=== PATIENT | female | born 1970 | race Caucasian/White ===

== ENCOUNTER 2017-01-05 12:02 | Emergency (ER) | payer OTHER ==
--- NOTE | 2017-01-05 14:19 | ED CLINICAL REPORT ---
Clinical Report - Physicians/Mid Levels [facility] [address] [place] [address] 01/05/2017 12:06 Patient: MACIEJ FERNANDEZ Arrived- By private vehicle. Historian- patient. HISTORY OF PRESENT ILLNESS Is no longer unconscious. She has recovered (staying the same). Chief Complaint: NEAR-SYNCOPE. This occurred The past few days. It was gradual in onset and has been constant. Patient was last known well (Days ago). Event was not witnessed. The patient had preceding symptoms of light-headedness. The patient felt faint. The episode lasted hours. No injuries noted. Currently she does not feel normal. (reports feeling lightheaded. Patient reports being recently started on Topamax.). Similar symptoms previously: None. Recent medical care: Not recently seen/assessed. REVIEW OF SYSTEMS All systems otherwise negative, except as recorded above. PAST HISTORY See nurses notes. Medications: diabetic oral med. PriLOSEC Oral, 2x a day. TraZODone HCl Oral, at bedtime. Lantus Subcutaneous 24 units, at bedtime. HumaLOG Subcutaneous 18 units, 4 times daily. Depakote Sprinkles Oral (Capsule Sprinkle 125 mg) 2 capsules, twice daily. headache medication. Allergies: Percocet-rash. Vicodin. SOCIAL HISTORY Never smoker. No alcohol use or drug use. No recent travel. Is a local resident. FAMILY HISTORY (No family history of unexpected early .). ADDITIONAL NOTES The nursing notes have been reviewed. PHYSICAL EXAM Vital Signs: 01/05/2017 12:12 BP: 109/47. HR: 70. RR: 18. O2 saturation: 98%. Temp: 98.2 F. Pain level now: 10/10. Blood pressure normal. Oxygen saturation normal. Appearance: Alert. No acute distress. Eyes: Pupils equal, round and reactive to light. No nystagmus. Extraocular movements normal. ENT: Normal ENT inspection. TM's normal. Moist mucous membranes. Pharynx normal. Neck: Normal inspection. Neck supple. CVS: Normal heart rate and rhythm. Heart sounds normal. Pulses normal. Respiratory: No respiratory distress. Breath sounds normal. Abdomen: Soft and nontender. No organomegaly. Skin: Skin warm and dry. Normal skin color. No rash. Normal skin turgor. Extremities: Extremities exhibit normal ROM. No lower extremity edema. Neuro: Alert. Oriented X 3. Mood/affect normal. Speech normal. Cranial nerves normal (as tested). No cerebellar findings. No motor deficit. No sensory deficit. Reflexes normal. (Normal gait). LABS, X-RAYS, AND EKG EKG: Normal sinus rhythm. Rate: 72. Normal P waves. Normal EV. Normal QRS complex. Normal axis. Normal ST and T waves, QT and QTc. The study has been interpreted contemporaneously by me. The study has been independently viewed by me. The EKG appears to be a good tracing. Laboratory Tests: UA-Culture if indicated: (BARBRA: 01/05/2017 12:23) ( [facility] [place] 01/05/[place] 12:35) Final results Test Result Flag Units (Reference) URINE COLOR YELLOW URINE APPEARANCE CLEAR URINE GLUCOSE TRACE (NEGATIVE) URINE BILIRUBIN NEGATIVE (NEGATIVE) URINE KETONE NEGATIVE (NEGATIVE) URINE SPECIFIC GRAVITY >= 1.030 (1.010-1.030) URINE PH 5.0 (5.0-8.0) URINE PROTEIN NEGATIVE (NEGATIVE) URINE UROBILINOGEN 0.2 EU/dL (0.2-1.0) URINE NITRITE NEGATIVE (NEGATIVE) URINE BLOOD NEGATIVE (NEGATIVE) URINE LEUK ESTERASE NEGATIVE (NEGATIVE) URINE RBC NONE SEEN rbc/hpf (0-1) URINE WBC 1-3 wbc/hpf (0-1) URINE EPITHELIAL CELLS 1-3 EPI/hpf (0-5) URINE BACTERIA TRACE (<1+) (NONE SEEN) URINE COMMENT CULT NOT INDICATED 1+ MUCOUSURINE CULTURES ARE SET-UP BASED ON THE FOLLOWING CRITERIA:POSITIVE NITRITEPOSITIVE LEUKOCYTE ESTERASEGREATER THAN 10 WHITE BLOOD CELLSMODERATE (2+) OR GREATER BACTERIA Urine: (BARBRA: 01/05/2017 12:23) ( [facility] [place] 01/05/2017 12:28) Final results Test Result Flag Units (Reference) URINE NEGATIVE CBC w Diff: (BARBRA: 01/05/2017 12:45) ( Msg[facility]cvd 01/05/2017 12:52) Final results Test Result Flag Units (Reference) WHITE BLOOD COUNT 6.5 K/uL (4.5-11.5) RED BLOOD COUNT 4.92 M/uL (4.00-5.20) HEMOGLOBIN 14.4 gm/dL (12.0-16.0) HEMATOCRIT 41.5 % (36.0-46.0) MEAN CELL VOLUME 84 fL (80-100) MEAN CORPUSCULAR HGB 29 pg (26-34) MEAN CORPUSCULAR HGB CONC 35 g/dL (31-37) RED CELL DISTRIBUTION WIDTH 12.3 % (11.6-14.8) PLATELET COUNT 232 K/uL (150-400) NEUTROPHIL % 52.6 % (50-75) LYMPH % 40.3 H % (25-40) MONO % 4.9 % (3-14) EOSINOPHIL % 1.8 % (0-4) BASOPHIL % 0.4 % (0-2) Urine Drug Screen: (BARBRA: 01/05/2017 12:41) ( MsgRcvd 01/05/2017 13:09) Final results Test Result Flag Units (Reference) AMPHETAMINE/METHAMPHETAMINE NEGATIVE (NEGATIVE) BARBITURATE NEGATIVE (NEGATIVE) BENZODIAZEPINE NEGATIVE (NEGATIVE) CANNABINOID NEGATIVE (NEGATIVE) COCAINE NEGATIVE (NEGATIVE) ECSTASY NEGATIVE (NEGATIVE) METHADONE NEGATIVE (NEGATIVE) OPIATE NEGATIVE (NEGATIVE) The urine drug screen is a qualitative screening test fordrug overdose and abuse. All screen results should beconsidered as presumptive.Drugs screened for are as follows:BenzodiazepinesCocaineAmphetamines/MetamphetaminesTHC (Tetrahydrocannabinol)OpiatesBarbituratesEcstasyMethadonePositive results are unconfirmed. For confirmation, notifythe lab for the specimen to be sent to the reference lab.All confirmations must be performed by a differentmethodology.The ingestion of natural herbal and plant productscontaining Ephedra/Ephedra metabolites can produce in urineone or more substances capable of cross reacting withamphetamine/methamphetamine immunoassays. These testsprovide a preliminary result only. A more specificalternative chemical method must be used to obtain aconfirmed analytical result. CMP: (BARBRA: 01/05/2017 12:45) ( MsgRcvd 01/05/2017 13:11) Final results Test Result Flag Units (Reference) GLUCOSE 310 H mg/dL (70-110) BUN 10 mg/dL (7-18) CREATININE 0.8 mg/dL (0.6-1.3) Estimated GFR >60 mL/min Estimated GFR- >60 mL/min Note: Persistent reduction over 3 months in eGFR<60 mL/min/1.73 m2 defines CKD. Patients with eGFR values>=60 mL/min/1.73 m2 may also have CKD if evidence ofpersistent proteinuria. Additional information may be foundat www.kidney.org. SODIUM 140 mmol/L (136-145) POTASSIUM 3.6 mmol/L (3.5-5.1) CHLORIDE 106 mmol/L (98-107) CARBON DIOXIDE 22 mmol/L (21-32) CALCIUM 8.7 mg/dL (8.5-10.1) TOTAL PROTEIN 7.9 g/dL (6.4-8.2) ALBUMIN 3.4 g/dL (3.3-5.0) BILIRUBIN, TOTAL 0.8 mg/dL (0.0-1.0) ALKALINE PHOSPHATASE 131 H U/L (46-116) AST (SGOT) 24 U/L (15-37) ALT (SGPT) 41 U/L (12-78) . PROGRESS AND PROCEDURES Course of Care: the patient is a pleasant 46-year-old female presenting for evaluation of near-syncope. The patient reports feeling lightheaded in nature. Patient recently started Topamax. This is likely the etiology for the patient's lightheadedness at this time. Patient will be evaluated for other causes for the lightheadedness. Patient will be evaluated with the [place] syncope rule. EKG and blood work has been ordered in regards to this. We'll additionally order urinary studies for evaluation of urinary tract infection which could be causing the patient's symptoms at this time. We'll also evaluate patient's electrolytes as she she is a diabetic and could have significant abnormalities there causing her symptoms. Workup shows patient to be hyperglycemic. Patient without evidence of diabetic ketoacidosis. EKG is unremarkable. The [place] syncope rule workup is noted to be unremarkable. Patient reports no other concerns at this time. Had discussion with patient in regards to her presentation here in the emergency department. Because of the temporal relation with her starting Topamax and her lightheadedness, recommended patient slowly reduce the Topamax and then eventually taper off. Patient was agreeable to the treatment and plan. Encourage patient tospeak with her doctor in regards to this medication and if there are any other alternatives for this medication. Prior to patient's departure from the emergency department she was noted be resting in bed in no acute distress. Vital signs are unremarkable. Do not fill patient is to be admitted the hospital require further emergency department workup/evaluation. The patient is a good outpatient candidate. I discussed the patient workup, diagnosis, home care, follow-up, and return precautions. All questions answered. The patient expressed understanding of these instructions and was agreeable to them. Disposition: Discharged. Condition: good. CLINICAL IMPRESSION Near syncope (acute). 01/05/2017 14:13 BP: 108/59. HR: 67. RR: 16. O2 saturation: 100%. Blood pressure normal. Oxygen saturation normal. Moderate hyperglycemia (acute). INSTRUCTIONS (Contact your doctor about stopping Topamax). Warnings: GENERAL WARNINGS: Return or contact your physician immediately if your condition worsens or changes unexpectedly, if not improving as expected, or if other problems arise. SPECIFICALLY, return if you develop chest pain, fluttering sensation in your chest, lightheadedness, fainting, numbness or extreme fatigue. OTC Medications: Acetaminophen (available over the counter): take according to label instructions. Motrin (available over the counter): take according to label instructions. Follow-up: Return to the emergency department as needed. Follow up with your doctor in three days. Reason for referral: recheck today's concerns. Summary of care provided to patient via paper. Screening today revealed the patient's blood pressure to be in the normal range. The patient should follow up with a primary care provider for blood pressure management. Understanding of the discharge instructions verbalized by patient. (Electronically signed by Jignesh Rosales Dr. 01/09/2017 10:04)
--- NOTE | 2017-01-05 14:20 | ED ORDER SUMMARY ---
..... Patient: MACIEJ FERNANDEZ OrderSheet [facility] VisitID: [id number] [address] [place] [place] [address] 46y, F Registration Date/Time: 01/05/2017 ORDER SHEET Weight: 103.5 kg (measured) Allergies: Percocet-rash, Vicodin GENERAL ORDERS: UA-Culture if indicated Urgent (12:01/05/2017 JBoartejal R.N. per protocol) (12:27 EBonham) Urine Urgent (12:01/05/2017 JBoardley R.N. 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) (near syncope) (12:01/05/2017 Tiffanie Mckeon) (12:27 EBonnieves) EKG - ER Stat (12:01/05/2017 Tiffanie Mckeon) [facility] Pulse oximeter (12:01/05/2017 Tiffanie Mckeon) [facility] CBC w Diff Urgent (12:01/05/2017 Tiffanie Mckeon) (Ack 12:33 MDouse ER Tech1) (12[facility] CMP Urgent (12:01/05/2017 Tiffanie Mckeon) (Ack 12:33 MDouse ER Tech1) (12[facility] POC Glucose (12:01/05/2017 Tiffanie Mckeon) (12:26 Edie R.N.) Urine Drug Screen Urgent (12:34 01/05/2017 Renny per protocol) (12:34 NHouse ER Tech1) MEDICATION ORDERS: IV FLUIDS: IV NS : initial bolus 1000 mL (1000 mL/hr), then none - for X1 (NOW) (12:01/05/2017 Tiffanie Mckeon) (12:45 JBoartejal R.N.) ORDER SHEET NOTES: [Electronically signed by Sofiya Fuchs (14:31 01/05/2017)] [Electronically signed by Jignesh Rosales Dr. (10:04 01/09/2017)] [Electronically locked/signed by Sofiya Fuchs (14:31 01/05/2017)[place]
--- NOTE | 2017-01-05 14:20 | ED NURSING NOTES ---
Clinical Report - Nurses [facility] [address] [place] [address] 01/05/2017 12:06 Patient: MACIEJ FERNANDEZ [facility]#: [id number] TRIAGE Triage time 12:12. Acuity: LEVEL 3. Chief Complaint: DIZZINESS. 12:12 01/05/17. 12:12 01/05/17. Alert. No acute distress. SEPSIS SCREEN: Sepsis Screen. Negative (no infection suspected/documented). LYDIA COMA SCORE: [place] Coma Scale: 15- eyes open spontaneously (4); best verbal response- oriented x 4 (5); best motor response- obeys commands (6). --12:19 Stalin Pineda R.N. 12:12 01/05/17. BP: 109/47. HR: 70. RR: 18. O2 saturation: 98% on room air. Temp: 98.2 F (oral). Pain level now: 08/31. --12:19 Stalin Pineda R.N. Height/Length: 62 inches Per Patient. --12:13 Stalin Pineda R.N.. Weight: 103.5 kg measured. BMI: 41.8. --12:22 Stalin Pineda R.N. Medications Depakote Sprinkles Oral (Capsule Sprinkle 125 mg) 2 capsules, twice daily. headache medication. --12:17 Stalin Pineda R.N. HumaLOG Subcutaneous 18 units, 4 times daily. --12:17 Stalin Pineda R.N. Lantus Subcutaneous 24 units, at bedtime. --12:17 Stalin Pineda R.N. PriLOSEC Oral, 2x a day. TraZODone HCl Oral, at bedtime. --12:18 Stalin Pineda R.N. diabetic oral med. --12:18 Stalin Pineda R.N. Medication/allergy information source: the patient. --12:19 Stalin Pineda R.N. Allergies Percocet-rash. Vicodin. --12:18 Stalin Pineda R.N. History Arrived by private vehicle, and (landlord drove pt in). Historian: patient. Unaccompanied. Primary physician (KARLOS CHAPMAN). 12:01/05/17. This started yesterday. 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 PAST MEDICAL HX: Last normal menstrual period- March 04, 2016-Irregular. Immunizations not up to date. SOCIAL HX: Never smoker. No alcohol use or drug use. No infectious disease exposure. ABUSE ASSESSMENT: No report of abuse. FALL RISK ASSESSMENT: Fall risk assessment completed. No fall risk identified. NUTRITIONAL RISK ASSESSMENT: The nutritional risk assessment revealed no deficiencies. FUNCTIONAL ASSESSMENT: Functional assessment: no impairments noted. LEARNING NEEDS ASSESSMENT: The learning needs assessment revealed no barriers. SKIN INTEGRITY ASSESSMENT: Skin integrity risk assessment completed. No skin integrity risk identified. --12:19 Stalin Pineda R.N. PROBLEMS: Tinea Cruris. Skin Rash. Acute Otalgia. Acute Pain. Sinusitis. Sinus Problems. Prior Nosebleeds. Ear Infection. Sick Contact. Head Injury. Headache. Abdominal Pain. Sleep disorder. Seizure. Diabetes Mellitus. --12:19 Stalin Pineda R.N. ADDITIONAL SURGERIES: Cholecystectomy. . Oophorectomy. --12:19 Stalin Pineda R.N. Assessment 12:01/05/17. --12:19 Stalin Pineda R.N. Interventions 12:01/05/17. 12:01/05/17. ID and allergy band on patient. To treatment room. --12:19 Stalin Pineda R.N. PHYSICAL ASSESSMENT 12:01/05/17. Ambulatory to room. GENERAL / NEURO / PSYCH: Alert. Oriented X 4. CVS: Capillary refill less than 2 seconds. SKIN: Skin is warm and dry. --12:19 Stalin Pineda R.N. NURSING PROGRESS NOTES 12:01/05/17. The plan of care for this patient has been created. Patient gowned. Head of bed elevated. Reassurance given. Two patient identifiers checked. Call light placed in reach. Side rails up x 2. Bed placed in lowest position. Brakes of bed on. Brakes of chair on. --12:19 Stalin Pineda R.N. 12:19 01/05/17. Patient ready for evaluation- chart flagged and notification provided. --12:19 Stalin Pineda R.N. 12:20 01/05/17. Patient ID band checked for patient name and birthdate: patient confirmed. Clean catch urine collected with return of yellow-colored urine; sample sent to lab for urinalysis and culture. Specimen labeled in the presence of the patient. --12:20 Stalin Pineda R.N. 12:24 01/05/17. Finger stick glucose: 302 mg/dL; ordered; performed by nurse. --12:24 Stalin Pineda R.N. EKG time: (1239). EKG was ordered, performed by a tech and shown to the ED physician. --12:41 Qian French ER Tech1 12:39 01/05/2017 Site #1 started via IV in the left forearm with an 20g angiocath; two attempts. Blood drawn: rainbow set. Labeled in the presence of the patient and sent to the lab. Saline lock flushed with 10 mL saline. --12:44 Stalin Pineda R.N. 12:45 01/05/2017 Started bag #1 1000 mL IV Fluids IV NS (Saline); at 1000 mL/hr over 1 hour(s) via site #1. Allergies verified and confirmed 5 rights. IV patency established. IV site checked: no pain, redness, or swelling. IV flushed thoroughly pre- and post-medication administration. Completed per protocol. --12:45 Stalin Pineda R.N. 14:13 01/05/17. BP: 108/59. HR: 67. RR: 16. O2 saturation: 100%. Pain level now 0/10. --14:15 Sofiya Fuchs Monitoring of patient in place. Reassurance given. Reassessment after intervention. She reports no complaints and she is calm. Overall patient status is improved- she states feels better. ( Pt smiling and talked on phone with friends). Call light placed in reach. Side rails up x 2. Bed placed in lowest position. Brakes of bed on. Patient informed about reason for wait and about plan of care. Patient waiting for lab results. --14:15 Sofiya Fuchs 14:29 01/05/2017 Site #1 removed upon discharge. Pressure dressing applied. --14:29 Sofiya Fuchs 14:29 01/05/2017 IV Fluids IV NS Discontinued: bag #1 STOPPED upon discharge. Total amount infused: 600 mL. --14:29 Sofyia Fuchs 14:29 01/05/17. BP: 108/48. HR: 68. RR: 16. O2 saturation: 100%. Pain level now 0/10. --14:30 Sofiya Fuchs. DISPOSITION / DISCHARGE Departure time: 1425. Condition at departure: improved and stable. No learning barriers present. Discharge instructions provided and reviewed with the patient. Patient verbalized understanding. Written instructions provided in Kyrgyz. The patient was discharged by the physician. She was discharged home and accompanied by director of graduate medical education. She left the Emergency Department ambulatory and via private vehicle. Filling Carrier driving. --14:31 Sofiya Fuchs. Locked/Released at 01/05/2017 14:31 by Sofiya Fuchs,
--- NOTE | 2017-01-05 14:20 | ED ORDER SUMMARY ---
..... Patient: MACIEJ FERNANDEZ OrderSheet [facility] VisitID: [id number] [address] [place] [address] 46y, F Registration Date/Time: 01/05/2017 ORDER SHEET Weight: 103.5 kg (measured) Allergies: Percocet-rash, Vicodin GENERAL ORDERS: UA-Culture if indicated Urgent (12:01/05/2017 JBoartejal R.N. per protocol) (12:27 EBonham) Urine Urgent (12:01/05/2017 JBoardley R.N. 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 Pulse oximeter (12:01/05/2017 Tiffanie Mckeon) [facility] CBC w Diff Urgent (12:01/05/2017 Tiffanie Mckeon) (Ack 12:33 MIouse ER Tech1) (12:[facility] CMP Urgent (12:01/05/2017 Tiffanie Mckeon) (Ack 12:33 MIouse ER Tech1) (12:41 [facility] POC Glucose (12:01/05/2017 Tiffanie Mckeon) (12:26 Edie R.N.) Urine Drug Screen Urgent (12:34 01/05/2017 Renny per protocol) (12:34 NHouse ER Tech1) MEDICATION ORDERS: IV FLUIDS: IV NS : initial bolus 1000 mL (1000 mL/hr), then none - for X1 (NOW) (12:01/05/2017 Tiffanie Mckeon) (12:45 JBoartejal R.N.) ORDER SHEET NOTES: [Electronically signed by Sofiya Fuchs (14:31 01/05/2017)] [Electronically signed by Jignesh Rosales Dr. (10:04 01/09/2017)] [Electronically locked/signed by Sofiya Fuchs (14:31 01/05/2017)[place]
--- NOTE | 2017-01-05 14:20 | ED NURSING NOTES ---
Clinical Report - Nurses [facility] [address] [place] [address] 01/05/2017 12:06 Patient: MACIEJ FERNANDEZ [facility]#: [id number] TRIAGE Triage time 12:12. Acuity: LEVEL 3. Chief Complaint: DIZZINESS. 12:12 01/05/17. 12:12 01/05/17. Alert. No acute distress. SEPSIS SCREEN: Sepsis Screen. Negative (no infection suspected/documented). LYDIA COMA SCORE: Antelope Coma Scale: 15- eyes open spontaneously (4); best verbal response- oriented x 4 (5); best motor response- obeys commands (6). --12:19 Stalin Pineda R.N. 12:12 01/05/17. BP: 109/47. HR: 70. RR: 18. O2 saturation: 98% on room air. Temp: 98.2 F (oral). Pain level now: 08/31. --12:19 Stalin Pineda R.N. Height/Length: 62 inches Per Patient. --12:13 Stalin Pineda R.N.. Weight: 103.5 kg measured. BMI: 41.8. --12:22 Stalin Pineda R.N. Medications Depakote Sprinkles Oral (Capsule Sprinkle 125 mg) 2 capsules, twice daily. headache medication. --12:17 Stalin Pineda R.N. HumaLOG Subcutaneous 18 units, 4 times daily. --12:17 Stalin Pineda R.N. Lantus Subcutaneous 24 units, at bedtime. --12:17 Stalin Pineda R.N. PriLOSEC Oral, 2x a day. TraZODone HCl Oral, at bedtime. --12:18 Stalin Pineda R.N. diabetic oral med. --12:18 Stalin Pineda R.N. Medication/allergy information source: the patient. --12:19 Stalin Pineda R.N. Allergies Percocet-rash. Vicodin. --12:18 Stalin Pineda R.N. History Arrived by private vehicle, and (landlord drove pt in). Historian: patient. Unaccompanied. Primary physician (KARLOS CHAPMAN). 12:01/05/17. This started yesterday. 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 PAST MEDICAL HX: Last normal menstrual period- March 04, 2016-Irregular. Immunizations not up to date. SOCIAL HX: Never smoker. No alcohol use or drug use. No infectious disease exposure. ABUSE ASSESSMENT: No report of abuse. FALL RISK ASSESSMENT: Fall risk assessment completed. No fall risk identified. NUTRITIONAL RISK ASSESSMENT: The nutritional risk assessment revealed no deficiencies. FUNCTIONAL ASSESSMENT: Functional assessment: no impairments noted. LEARNING NEEDS ASSESSMENT: The learning needs assessment revealed no barriers. SKIN INTEGRITY ASSESSMENT: Skin integrity risk assessment completed. No skin integrity risk identified. --12:19 Stalin Pineda R.N. PROBLEMS: Tinea Cruris. Skin Rash. Acute Otalgia. Acute Pain. Sinusitis. Sinus Problems. Prior Nosebleeds. Ear Infection. Sick Contact. Head Injury. Headache. Abdominal Pain. Sleep disorder. Seizure. Diabetes Mellitus. --12:19 Stalin Pineda R.N. ADDITIONAL SURGERIES: Cholecystectomy. . Oophorectomy. --12:19 Stalin Pineda R.N. Assessment 12:01/05/17. --12:19 Stalin Pineda R.N. Interventions 12:01/05/17. 12:01/05/17. ID and allergy band on patient. To treatment room. --12:19 Stalin Pineda R.N. PHYSICAL ASSESSMENT 12:01/05/17. Ambulatory to room. GENERAL / NEURO / PSYCH: Alert. Oriented X 4. CVS: Capillary refill less than 2 seconds. SKIN: Skin is warm and dry. --12:19 Stalin Pineda R.N. NURSING PROGRESS NOTES 12:01/05/17. The plan of care for this patient has been created. Patient gowned. Head of bed elevated. Reassurance given. Two patient identifiers checked. Call light placed in reach. Side rails up x 2. Bed placed in lowest position. Brakes of bed on. Brakes of chair on. --12:19 Stalin Pineda R.N. 12:19 01/05/17. Patient ready for evaluation- chart flagged and notification provided. --12:19 Stalin Pineda R.N. 12:20 01/05/17. Patient ID band checked for patient name and birthdate: patient confirmed. Clean catch urine collected with return of yellow-colored urine; sample sent to lab for urinalysis and culture. Specimen labeled in the presence of the patient. --12:20 Stalin Pineda R.N. 12:24 01/05/17. Finger stick glucose: 302 mg/dL; ordered; performed by nurse. --12:24 Stalin Pineda R.N. EKG time: (1239). EKG was ordered, performed by a tech and shown to the ED physician. --12:41 Qian French ER Tech1 12:39 01/05/2017 Site #1 started via IV in the left forearm with an 20g angiocath; two attempts. Blood drawn: rainbow set. Labeled in the presence of the patient and sent to the lab. Saline lock flushed with 10 mL saline. --12:44 Stalin Pineda R.N. 12:45 01/05/2017 Started bag #1 1000 mL IV Fluids IV NS (Saline); at 1000 mL/hr over 1 hour(s) via site #1. Allergies verified and confirmed 5 rights. IV patency established. IV site checked: no pain, redness, or swelling. IV flushed thoroughly pre- and post-medication administration. Completed per protocol. --12:45 Stalin Pineda R.N. 14:13 01/05/17. BP: 108/59. HR: 67. RR: 16. O2 saturation: 100%. Pain level now 0/10. --14:15 Sofiya Fuchs Monitoring of patient in place. Reassurance given. Reassessment after intervention. She reports no complaints and she is calm. Overall patient status is improved- she states feels better. ( Pt smiling and talked on phone with friends). Call light placed in reach. Side rails up x 2. Bed placed in lowest position. Brakes of bed on. Patient informed about reason for wait and about plan of care. Patient waiting for lab results. --14:15 Sofiya Fuchs 14:29 01/05/2017 Site #1 removed upon discharge. Pressure dressing applied. --14:29 Sofiya Fuchs 14:29 01/05/2017 IV Fluids IV NS Discontinued: bag #1 STOPPED upon discharge. Total amount infused: 600 mL. --14:29 Sofiya Fuchs 14:29 01/05/17. BP: 108/48. HR: 68. RR: 16. O2 saturation: 100%. Pain level now 0/10. --14:30 Sofiya Fuchs. DISPOSITION / DISCHARGE Departure time: 1425. Condition at departure: improved and stable. No learning barriers present. Discharge instructions provided and reviewed with the patient. Patient verbalized understanding. Written instructions provided in Bengali. The patient was discharged by the physician. She was discharged home and accompanied by associate account manager. She left the Emergency Department ambulatory and via private vehicle. Telegraph Service Clerk driving. --14:31 Sofiya Fuchs. Locked/Released at 01/05/2017 14:31 by Sofiya Fuchs,
--- NOTE | 2017-01-09 10:04 | ED MED RECONCILIATION SUMMARY ---
Patient: MACIEJ FERNANDEZ Medication Reconciliation Report [facility] VisitID: [id number] [address] [place] [address] 46y, F Registration Date/Time: 01/05/2017 Weight: 103.5 kg Height/Length: 62 in. BMI: 41.8 ALLERGIES: Percocet-rash, Vicodin The patient's Home Medications are listed below: THE FOLLOWING MEDICATIONS NEED TO BE RECONCILED: Depakote Sprinkles Oral (125 mg) 2 capsules, twice daily diabetic oral med headache medication HumaLOG Subcutaneous 18 units, 4 times daily Lantus Subcutaneous 24 units, at bedtime PriLOSEC Oral, 2x a day TraZODone HCl Oral, at bedtime The source(s) of the original Home Medication information: patient The following Medications were given to the patient in the Emergency Department: IV NS IV Fluids bolus 0, then 1000 mL/hr, administered: 01/05/2017 12:45:00 PM The following Medications were prescribed to the patient: Acetaminophen (available over the counter): take according to label instructions. -- Jignesh Rosales Dr. Motrin (available over the counter): take according to label instructions. -- Jignesh Rosales Dr.
--- NOTE | 2017-01-09 10:04 | ED DISCHARGE INSTRUCTIONS ---
Patient: MACIEJ FERNANDEZ General Instructions [facility] VisitID: [id number] [address] [place] [address] 46y, F Registration Date/Time: 01/05/2017 Near syncope (acute). 01/05/2017 14:13 BP: 108/59. HR: 67. RR: 16. O2 saturation: 100%. Blood pressure normal. Oxygen saturation normal. Moderate hyperglycemia (acute). INSTRUCTIONS (Contact your doctor about stopping Topamax). Warnings: GENERAL WARNINGS: Return or contact your physician immediately if your condition worsens or changes unexpectedly, if not improving as expected, or if other problems arise. SPECIFICALLY, return if you develop chest pain, fluttering sensation in your chest, lightheadedness, fainting, numbness or extreme fatigue. OTC Medications: Acetaminophen (available over the counter): take according to label instructions. Motrin (available over the counter): take according to label instructions. Follow-up: Return to the emergency department as needed. Follow up with your doctor in three days. Reason for referral: recheck today's concerns. Summary of care provided to patient via paper. Screening today revealed the patient's blood pressure to be in the normal range. The patient should follow up with a primary care provider for blood pressure management. Understanding of the discharge instructions verbalized by patient. ADDITIONAL INFORMATION Near-Fainting:Uncertain Cause Fainting (syncope) is a temporary loss of consciousness ("passing out"). It occurs when blood flow to the brain is reduced. Near-fainting ("near-syncope") is like fainting, but you do not fully "pass out." The common minor causes of near fainting include sudden fear, pain, emotional stress, overexertion, or quickly standing up after sitting or lying for a long time. The more serious causes for near fainting are due to either a very slow or very fast heart beat, dehydration, anemia, blood loss, problems related to the heart, or taking too much high blood pressure medicine. The exact cause of your episode is not certain. More tests may be required. Therefore, it is important that you follow up with your doctor as advised. Home Care: 1) Rest today. Resume your normal activities as soon as you are feeling back to normal. 2) If you become light-headed or dizzy, lie down right away or sit with your head between your knees. 3) Because we do not know the exact cause of your near fainting spell, another spell could occur without warning. Therefore, do not drive a car or use dangerous equipment. D o not take a bath alone (use a shower instead). Do not swim alone. You can resume these activities when your doctor says that you are no longer in danger of having a near fainting spell. 4) Stay well hydrated by drinking enough fluid each day. Follow Up with your doctor as instructed. Get Prompt Medical Attention if any of the following occur: -- Another fainting spell occurs, and it is not explained by the common causes listed above -- Chest, arm, neck, jaw, back or abdominal pain -- Shortness of breath -- Weakness, tingling or numbness in one side of the face, one arm or leg -- Slurred speech, confusion, trouble walking or seeing -- Seizure -- Blood in vomit, stools (black or red color) -- (In women) unexpected vaginal bleeding Diabetes with High Blood Sugar You have been treated for high blood sugar (hyperglycemia). This may be becauseof an infection or other illness;eating too many sweets or starches ; not taking enough insulin. Home care High blood sugar may cause symptoms that you can learn to recognize, such as these: If you feel like your blood sugar may be too high, measure it using a blood or urine test. If it is above your usual range, use the "sliding scale"rRegular insulin dose your doctor gave you to correct this. If no "sliding scale" orders were given, contact your doctor for further advice. If your blood sugar is over 300, and you can't reach your doctor, go to the hospital emergency room. Monitor and write down your blood sugars - and insulin dose, if you take insulin - atleast twice a day. Do this before breakfast and before dinner. Do this for the next 3 to 5 days. Follow-up care Follow up with your health care provderduring the next week to review your blood sugar records. You will find out if you need to adjust your dose of insulin or other medicine for blood sugar. When to seek medical care Get prompt medical attention if either of these occur: High blood sugar.Symptoms are frequent urination, feeling dizzy, thirst, headache, nausea or vomiting, abdominal pain, and drowsiness or loss of consciousness. Low blood sugar. Symptoms are fatigue, headache, shakes, excess sweating, hunger, anxiety, reduced vision, drowsiness, weakness, confusion or loss of consciousness, and seizure. You have been given the following additional information: Near Syncope, Unknown Diabetic Hyperglycemia (Electronically signed by Jignesh Rosales Dr. 01/09/2017 10:04)
--- NOTE | 2017-01-09 10:04 | ED MED RECONCILIATION SUMMARY ---
Patient: MACIEJ FERNANDEZ Medication Reconciliation Report [facility] VisitID: [id number] [address] [place] [address] 46y, F Registration Date/Time: 01/05/2017 Weight: 103.5 kg Height/Length: 62 in. BMI: 41.8 ALLERGIES: Percocet-rash, Vicodin The patient's Home Medications are listed below: THE FOLLOWING MEDICATIONS NEED TO BE RECONCILED: Depakote Sprinkles Oral (125 mg) 2 capsules, twice daily diabetic oral med headache medication HumaLOG Subcutaneous 18 units, 4 times daily Lantus Subcutaneous 24 units, at bedtime PriLOSEC Oral, 2x a day TraZODone HCl Oral, at bedtime The source(s) of the original Home Medication information: patient The following Medications were given to the patient in the Emergency Department: IV NS IV Fluids bolus 0, then 1000 mL/hr, administered: 01/05/2017 12:45:00 PM The following Medications were prescribed to the patient: Acetaminophen (available over the counter): take according to label instructions. -- Jignesh Rosales Dr. Motrin (available over the counter): take according to label instructions. -- Jignesh Rosales Dr.
--- NOTE | 2017-01-09 10:04 | ED MAR SUMMARY ---
..... Medication Administration Record [facility] [address] [place] [address] Patient: MACIEJ FERNANDEZ Visit ID: [id number] 46y, F Weight: 103.5 kg Height/Length: 62 in BMI: 41.8 ALLERGIES: Percocet-rash, Vicodin Start 12:45 01/05/2017 Stalin Pineda R.N., Stop 14:29 01/05/2017 Sofiya Fuchs, Medication Administered: IV NS (SALINE), Dose: IV Fluids over 1 hour(s), Rate: 1000 mL/hr, Dispensed: 1000 mL bag, Site: #1 left forearm. Medication Ordered: IV NS : initial bolus 1000 mL (1000 mL/hr), then none - for X1 (NOW).
--- NOTE | 2017-01-09 10:04 | ED MAR SUMMARY ---
..... Medication Administration Record [facility] [address] [place] [address] Patient: MACIEJ FERNANDEZ Visit ID: [id number] 46y, F Weight: 103.5 kg Height/Length: 62 in BMI: 41.8 ALLERGIES: Percocet-rash, Vicodin Start 12:45 01/05/2017 Stalin Pineda R.N., Stop 14:29 01/05/2017 Sofiya Fuchs, Medication Administered: IV NS (SALINE), Dose: IV Fluids over 1 hour(s), Rate: 1000 mL/hr, Dispensed: 1000 mL bag, Site: #1 left forearm. Medication Ordered: IV NS : initial bolus 1000 mL (1000 mL/hr), then none - for X1 (NOW).
== END 2017-01-05 14:25 | disposition home or self-care (01) ==
LOC: ED SRH 12:02
DX: R55 Syncope and collapse (principal); E11.65 Type 2 diabetes mellitus with hyperglycemia; Z79.4 Long term (current) use of insulin; Z88.5 Allergy status to narcotic agent
CPT/HCPCS: 90004; 90100; 92760; 92761; 92762; 92763; 92764; 92765; 92766; 92767; 93070; 95059